=== PATIENT | male | born 1965 | race Caucasian/White ===

== ENCOUNTER → 2024-03-09 08:07 | Outpatient (REF) | payer BC, SELFPAY | LOC: DHCBC/DCA 08:07 | PROVIDERS: ATTENDING PHYSICIAN Internal Medicine Cardiovascular Disease; FAMILY PHYSICIAN Internal Medicine | DX: R07.9 Chest pain, unspecified (principal) | CPT/HCPCS: 78452; 93017; A9500 ==

== ENCOUNTER → 2024-03-23 10:04 | Outpatient (REF) | payer BC, SELFPAY | LOC: RCS 10:04 | PROVIDERS: ATTENDING PHYSICIAN Internal Medicine Cardiovascular Disease; FAMILY PHYSICIAN Internal Medicine | DX: R07.9 Chest pain, unspecified (principal) | CPT/HCPCS: 93306 ==

== ENCOUNTER 2024-06-10 02:14 | Inpatient (IN) | payer BC, SELFPAY ==
[2024-06-09 22:23] VITALS: BP 139/94
--- NOTE | 2024-06-09 23:45 | ED.GENMED ---
History of Present Illness
General
Chief Complaint: Abdominal Pain
Source: patient and spouse
Exam Limitations: none
Time Seen by Provider: 06/09/24 23:27
Nursing documentation reviewed up to this point in time: agreed with
History of Present Illness
History of Present Illness:
58-year-old male with past medical history of hyperlipidemia who presents to the emergency department for evaluation of abdominal pain. Patient reports symptoms started early in the afternoon around 1:30 PM and have been constant and significant
since then. He says that he lifted a heavy motorcycle engine prior to onset but does not recall any injury. He describes diffuse abdominal pain somewhat worse on the left side. No clear triggering or relieving factors noted. Associated with
nausea and vomiting today. Denies any diarrhea or constipation�had 2 bowel movements today. He denies any dysuria, hematuria, change in urinary frequency. Denies any fevers or chills. Denies any other complaints. Chart reviewed indicates prior
history of alcohol use�patient denies to me.
Past History
Past History
ED Past Medical History: Other (theochromocytosis)
ED Past Surgical History: None
Social History
Personal:
Living: with family
Employment: Employed
Review of Systems
Review of Systems
All Other Systems: ROS reviewed and negative except as documented in HPI and ROS
Constitutional: Denies fever or chills
Respiratory: Denies trouble breathing
Cardiac: Denies chest pain
ABD/GI: Reports abdominal pain, nausea and vomiting; Denies diarrhea or constipated
: Denies dysuria, frequency or flank pain
Musculoskeletal: Denies neck pain or back pain
Neurological: Denies dizzy or headache
Phy Exam
Physical Exam
Physical Exam:
General: Awake, alert, oriented x3; appears uncomfortable
Head: Normocephalic, atraumatic
Eyes: Conjunctiva normal, sclera anicteric
Throat: Airway intact, handling secretions
Neck: Trachea midline, supple without meningismus
Lungs: Clear to auscultation bilaterally, no wheezing, rales, rhonchi
Heart: Regular rate and rhythm, no murmurs, gallops, or rubs
Abd: Soft, non distended, diffusely tender to palpation, no palpable hernias or masses
Neuro: No gross deficits
Skin: no rash
Extremities: Warm and well-perfused
Scores
Heart Failure Risk
Heart Failure Risk Score: Not Applicable
Heart Score for Chest Pain Patients
STEMI patient?: Not applicable
Withdrawal Assessment of Alcohol
Withdrawal Assessment Completed?: Not applicable
Course
Orders/Labs/Results
Orders:
Orders
06/09/24 23:45
Urinalysis Reflex To Culture Urgent
0.9% Sodium Chloride 1000 ml [Nss] 1,000 ml IV BOLUS
HYDROmorphone [Dilaudid] 0.5 mg IV NOW STA
06/09/24 23:54
Complete Blood Count/With Diff Urgent
Comprehensive Metabolic Panel Urgent
Lactate Level [Lactic Acid] Urgent
Lipase Urgent
06/10/24 00:01
CT Abd/pelvis W Iv Cont Urgent
Reason For Exam: left sided abd pain
06/10/24 00:40
NG Tube [GI tube insertion- Treatment] ONCE
06/10/24 00:45
0.9% Sodium Chloride 1000 ml [Nss] 1,000 ml IV 100 mls/hr
Abnormal Lab Results
06/09/24
23:54
WBC 12.7 H 10^3/uL
(4.8-10.8)
MCH 31.6 H pg
(27.0-31.0)
Abs Immat Gran (auto) 0.1 H 10^3/uL
(0-0.05)
Absolute Neuts (auto) 10.4 H 10^3/uL
(1.4-6.5)
Absolute Monos (auto) 0.7 H 10^3/uL
(0.1-0.6)
Immature Gran % 0.6 H %
(0-0.5)
Neutrophils % 81.8 H %
(42.2-75.2)
Lymphocytes % 11.0 L %
(20.5-51.1)
Carbon Dioxide 31 H mmol/L
(22-30)
BUN 23 H mg/dl
(9-20)
Glucose 137 H mg/dl
(70-99)
06/09/24 23:54
06/09/24 23:54
Vital Signs
Initial and Last Documented VS:
Initial Vital Signs
Temp Pulse Resp BP Pulse Ox
36.4 C 79 18 139/94 100
06/09/24 22:23 06/09/24 22:23 06/09/24 22:23 06/09/24 22:23 06/09/24 22:23
Last Documented Vital Signs
Temp Pulse Resp BP Pulse Ox
36.4 C 87 16 136/80 97
06/09/24 22:23 06/10/24 00:30 06/10/24 00:30 06/10/24 00:30 06/10/24 00:30
MDM/Problems Addressed
Differential Diagnosis Includes:
Gastritis/PUD, pancreatitis, cholelithiasis, cholecystitis, nephrolithiasis, incarcerated hernia, diverticulitis, SBO
MDM/Problems Addressed:
58-year-old male presents for evaluation of abdominal pain started rather suddenly this afternoon and has been constant and worsening. Associated with nausea and vomiting. Vitals and exam as above. Will place an IV send labs including a CBC and a
CMP, urinalysis. Check lipase. Will check CT abdomen pelvis. Treat pain and provide fluids. Reassess after the above.
Labs reviewed: CBC shows leukocytosis, CMP no clinically significant abnormalities. Lipase normal. CT abdomen pelvis called back by [facility]: Positive for small bowel obstruction with transition point in the right abdomen. His pain is
well-controlled after 1 dose of pain medication. Lactate normal. Will plan to place nasogastric tube for decompression. Will admit for continued management. Fluids in progress. Case discussed with hospitalist.
*Radiology
Radiology exam reviewed: radiology read reviewed
*Pulse Oximetry
Patient hypoxic: no
*Critical Care Note
Total Time (30-74mins, 75-104mins- exclusive of procedures): Not Applicable
Patient Management
Discussion with other providers: Hospitalist (Discussed with hospitalist)
Escalation/DeEscalation of care consider admission/obs:
Admission indicate
ED Attending Note
-
Portions of this chart may have been created with voice recognition software.� Occasional wrong word or��sound alike� substitutions may have occurred due to the inherent limitations of voice recognition software.
Discharge Plan
Departure
Patient Disposition: Admit
Date of Disposition: 06/10/24
Time of Disposition: 00:46
Admit to doctor: Darrin
Presentation/result/management discussed w/ accepting MD/DO: Hospitalist
Discharge Problem:
SBO (small bowel obstruction)
Prescriptions:
No Action
No Current Medications
0
Referrals:
Best Mazariegos I., DO [Family Provider] -
Interventions
Interventions:
*Risk Screen - Suicide Last Done: 06/09/24 22:23
*General Assessment Last Done: 06/09/24 22:23
*Neglect/Abuse Screening Last Done: 06/09/24 22:23
RP-Bmcvmi-[id number] Assessment Last Done: 06/09/24 22:42
Discharge Date and Time
Print Language: BURKINAN
[2024-06-09] MEDS: DILAUDID 0.5 MG IV (23:50)
[2024-06-09] MEDS: NSS 1000 IV (23:50)
[2024-06-10 00:02] LABS: % Basophils 0.4 % (0-2); % Eosinophils 0.6 % (0-6); % Immature Granulocytes 0.6 % (0-0.5); % Monocytes 5.6 % (1.7-9.3); % Neutrophils 81.8 % (42.2-75.2); Absolute Basophils 0.1 10^3/uL (0-0.2); Absolute Eosinophils 0.1 10^3/uL (0-0.7); Absolute Immature Granulocytes 0.1 10^3/uL (0-0.05); Absolute Lymphocytes 1.4 10^3/uL (1.2-3.4); Absolute Monocytes 0.7 10^3/uL (0.1-0.6); Absolute Neutrophils 10.4 10^3/uL (1.4-6.5); Hematocrit 50.1 % (39.0-52.0); Hemoglobin 17.7 g/dL (13.0-18.0); Mean Corp Hgb Conc. 35.3 g/dL (33.0-37.0); Mean Corpuscular Hgb 31.6 pg (27.0-31.0); Mean Corpuscular Volume 89.3 fL (80.0-94.0); Mean Platelet Volume 10.1 fL (7.4-10.4); Nucleated Red Blood Cells % 0 % (-); Platelet Count 248 10^3/uL (130-400); Red Blood Cell Count 5.61 10^6/uL (4.70-6.10); Red Cell Dist. Width 12.8 % (11.5-14.5); White Blood Cell Count 12.7 10^3/uL (4.8-10.8)
[2024-06-10 00:15] LABS: ALT (SGPT) 43 U/L (0-50); AST (SGOT) 29 U/L (17-59); Albumin 4.5 g/dl (3.5-5.0); Alkaline Phosphatase 103 U/L (38-126); Blood Urea Nitrogen 23 mg/dl (9-20); Calcium 10.2 mg/dl (8.4-10.2); Carbon Dioxide 31 mmol/L (22-30); Chloride 99 mmol/L (98-107); Estimated Creatinine Clearance 113 ml/min; Glucose 137 mg/dl (70-99); Lactic Acid 0.9 mmol/L (0.7-2.0); Lipase 61 U/L (23-300); Potassium 4.1 mmol/L (3.5-5.1); Sodium 137 mmol/L (135-145); Total Protein 7.3 g/dl (6.3-8.2); eGFR > 60.00
[2024-06-10 00:30] VITALS: BP 136/80
--- NOTE | 2024-06-10 01:58 | HPS.HSE ---
Family Physician
-
Family Physician: Best Mazariegos
Chief Complaint
-
Abd Pain, N/V
History of Present Illness
Patient is a 58y M with no significant PMH who presents to ED complaining of abdominal pain and N/V. Patient states that he was feeling well earlier today. Around noon he lifted a motorcycle engine by himself. Around 1 PM he developed severe,
diffuse abdominal pain. His symptoms lasted for several hours. He attempted to move his bowels unsuccessfully. No flatus since pain started. He induced vomiting at home with no significant improvement in his symptoms and ultimately he presented
to the ED for further evaluation.
Patient has never had any prior intra-abdominal surgeries. No prior h/o similar symptoms.
He had a normal BM this AM prior to onset of his current symptoms.
In the ED, NG was placed for > 2 liters of bilious drainage. Patient continues to complain of significant abdominal pain.
Medical History
Past Medical History
Past Medical History: Reports None
Past Surgical History: Reports None
Social History
Tobacco: Smoker (Prior cigarette smoker. Current daily vape use.)
Alcohol: Occasional
Personal:
Living: With Family
Family History
Family History: Not pertinent
Allergies / Home Medications
Allergies reflects when Allergies were last updated in [email or web address].
Home Medications with original date entered in [email or web address]
Allergy/Medication List:
Allergies
Allergy/AdvReac Type Severity Reaction Status Date / Time
No Known Allergies Allergy Verified 08/17/14 08:13
Home Medications
No Meds [No Current Medications] 08/07/14
Review of Systems
-
History Source: Patient
A 12 point ROS was completed and negative except as noted: Yes
Constitutional: Denies Fever or Chills
Respiratory: Denies Cough or Trouble Breathing
Cardiac: Denies Chest Pain or Palpitations
Abdomen/GI: Reports Abdominal Pain, Nausea and Vomiting; Denies Diarrhea
: Denies Dysuria or Frequency
Musculoskeletal: Denies Joint Pain or Edema
Neurological: Denies Dizzy or Headache
Physical Exam
Vital Signs
Vital Signs
Temp Pulse Resp BP Pulse Ox
97.6 F 87 16 136/80 97
06/09/24 22:23 06/10/24 00:30 06/10/24 00:30 06/10/24 00:30 06/10/24 00:30
Physical Exam
General: Other (58y M in moderate distress due to pain.)
HEENT: Other (Dry MM. Neck supple. NG in place at present.)
Respiratory: Clear; No Wheezes, Rales or Rhonchi
Cardiac: S1/S2 and Regular Rhythm; No Murmur
GI: Other (Abdomen is distended and firm. Pos diffuse tenderness. Bowel sounds are diminished.)
Musculoskeletal: No Clubbing, No Cyanosis and No Edema
Laboratory Results
-
06/09/24 23:54
06/09/24 23:54
Laboratory Results
Lactic Acid 0.9 mmol/L (0.7-2.0) 06/09/24 23:54
Total Bilirubin 1.0 mg/dl (0.2-1.3) 06/09/24 23:54
AST 29 U/L (17-59) 06/09/24 23:54
ALT 43 U/L (0-50) 06/09/24 23:54
Alkaline Phosphatase 103 U/L (38-126) 06/09/24 23:54
Lipase 61 U/L (23-300) 06/09/24 23:54
Impression/Plan
-
A/P: Patient is a 58y M with no significant PMH who presents to ED complaining of abdominal pain since this afternoon.
SBO
- Admit for further evaluation and treatment.
- Patient with acute SBO in [place] abdomen. Symptom onset shortly after very heavy lifting raises concern for internal hernia.
- Mild mesenteric stranding on CT, but lactate level normal.
- NG decompression. NPO, IVFs. Continue efforts at pain control.
- Follow for clinical improvement.
- Surgery evaluation for additional recommendations +/- OR intervention.
DVT Prophylaxis: SCDs
Code Status: Full
[2024-06-10] MEDS: NSS 1000 IV ×4 (02:09→18:28)
[2024-06-10] MEDS: DILAUDID 1 MG IV (02:09)
[2024-06-10 03:49] VITALS: BP 135/105; BMI 29.7
[2024-06-10] MEDS: DILAUDID 0.5 MG IV ×2 (04:06→22:06)
[2024-06-10 04:42] LABS: Urine Albumin 1+ (Neg - Trace); Urine Bilirubin Negative (Negative); Urine Character Clear (Clear); Urine Color Yellow; Urine Glucose Negative (Negative); Urine Ketone 3+ (Negative); Urine Leukocyte 1+ (Negative); Urine Nitrite Negative (Negative); Urine Occult Blood 2+ (Negative); Urine Urobilinogen Negative (Neg - 1+)
[2024-06-10 04:54] LABS: Urine Bacteria Few (Negative); Urine Granular Cast 0-2 /LPF (0); Urine Red Blood Cell 0-2 /HPF (0-2); Urine Squamous Cell 0-2 /LPF (Few)
[2024-06-10 06:46] LABS: Hematocrit 51.8 % (39.0-52.0); Hemoglobin 18.1 g/dL (13.0-18.0); Mean Corp Hgb Conc. 34.9 g/dL (33.0-37.0); Mean Corpuscular Hgb 31.7 pg (27.0-31.0); Mean Corpuscular Volume 90.7 fL (80.0-94.0); Mean Platelet Volume 9.6 fL (7.4-10.4); Platelet Count 266 10^3/uL (130-400); Red Blood Cell Count 5.71 10^6/uL (4.70-6.10); White Blood Cell Count 15.2 10^3/uL (4.8-10.8)
[2024-06-10 07:06] LABS: Blood Urea Nitrogen 27 mg/dl (9-20); Calcium 10.3 mg/dl (8.4-10.2); Carbon Dioxide 27 mmol/L (22-30); Chloride 103 mmol/L (98-107); Estimated Creatinine Clearance 101 ml/min; Glucose 143 mg/dl (70-99); Potassium 4.3 mmol/L (3.5-5.1); Sodium 140 mmol/L (135-145); eGFR > 60.00
[2024-06-10] MEDS: TORADOL 15 MG IV (07:35)
[2024-06-10 07:45] VITALS: BP 118/78
[2024-06-10] MEDS: PROTONIX IV 40 MG IV (08:49)
[2024-06-10] MEDS: NSS (PRESERVATIVE FREE) 10 ML IV (08:49)
--- NOTE | 2024-06-10 09:09 | CON.GS ---
Medical History
-
Chief Complaint: Abdominal pain, distention and vomiting
History of Present Illness:
Patient is a 58-year-old male who was in his usual baseline state of health until yesterday afternoon when he began developing the acute onset of abdominal discomfort and distention.
States the only preceding change compared to his typical diet and routine is that he had 2 cups of blackberries. Notices symptoms shortly after moving motorcycle engine but they were not abrupt in onset during this activity. Abdominal bloating and
distention slowly progressed throughout the day. He went out to dinner with family/friends and ate very little because of anorexia and discomfort. His pain continued to progress into the evening prompting emergency department evaluation. He
induced vomiting to alleviate the pressure but stated that he did not have nausea. No sick contacts that he is aware of.
Patient reports symptoms started similar to what he experienced after trialing omeprazole/PPI in March for GERD.
This a.m. notes improving distention and discomfort. Pain essentially completely relieved with pain medication. He has had 4 loose bowel movements as well overnight since admission. No localizing abdominal pain.
Past Medical History
Past Medical History: None (Patient denies any significant active or past medical history.) and GERD
Past Surgical History: None (Denies any past abdominal surgical history)
Social History
Alcohol: Occasional
Personal:
Living: With Family
Employment: Employed
Family History
Family History: Reviewed & Not Pertinent
Allergies / Home Medications
Allergy/AdvReac Type Severity Reaction Status Date / Time
No Known Allergies Allergy Verified 08/17/14 08:13
�Medication �Instructions �Recorded �Confirmed �Type
No Meds [No Current Medications] 08/07/14 06/10/24 History
Review of Systems
-
A 10 point review of systems was completed, and was negative except as per HPI.
Physical Exam
Vital Signs
Temp Pulse Resp BP Pulse Ox
97.9 F 103 16 118/78 94
06/10/24 07:45 06/10/24 07:45 06/10/24 07:45 06/10/24 07:45 06/10/24 07:45
06/09/24 06/10/24 06/11/24
06:59 06:59 07:59
Actual Weight 91.285 kg
Body Mass Index (BMI) 29.7
Lab Results
06/10/24 06:25
06/10/24 06:25
WBC 15.2 10^3/uL (4.8-10.8) H 06/10/24 06:25
Hgb 18.1 g/dL (13.0-18.0) H 06/10/24 06:25
Hct 51.8 % (39.0-52.0) 06/10/24 06:25
Plt Count 266 10^3/uL (130-400) 06/10/24 06:25
Abs Immat Gran (auto) 0.1 10^3/uL (0-0.05) H 06/09/24 23:54
Neutrophils % 81.8 % (42.2-75.2) H 06/09/24 23:54
Physical Exam
General: Well Developed, Well Nourished, No Apparent Distress, Comfortable (Patient resting comfortably in hospital bed.) and Other ( at bedside. )
HEENT: Normocephalic, Anicteric and Other (NG tube in place and secured. 55 cm bryanna)
Cardiac: Regular Rhythm
GI: Soft, Tender (Slight tenderness on palpation central and right side. No rebound, no rigidity, no guarding. No percussion tenderness.) and Distended (Mildly distended but not tense.)
Skin: Warm
Neuro: AO x 3
Psych: Calm
Data Reviewed
-
CT Scan: Image Personally Visualized and interpreted, Report Reviewed by me, Discussed with Physician, Discussed with Patient and Discussed with Family
Labs: Labs Reviewed by me, Discussed with Physician, Discussed with Patient and Discussed with Family
Assessment / Plan
-
Assessment: 58-year-old male admitted with possible SBO; uncertain etiology -possible dietary indiscretion with resultant passage of food bolus? No radiographic evidence of mass or adenopathy.
Differential diagnosis also includes viral enteritis
Personally reviewed CT imaging as well as radiologist report. Significant distention of the stomach and proximal small bowel. Small bowel feces sign proximal to the transition point which is a rather smooth and straight aligned taper rather than
twist or turn. Slight mesenteric edema, no significant bowel wall thickening. No free fluid or ascites. No radiographic evidence strongly suggestive of internal hernia or closed-loop obstruction. There is still liquid contents within the
relative decompressed distal ileum which is not completely collapsed all the way up to the terminal ileum.
Discussed with patient and his impressions as outlined above. We reviewed treatment options which would include continued bowel rest, NG tube decompression and close observation/supportive care versus more urgent surgical intervention with
diagnostic laparoscopy. Given clinical improvement with initial hydration and NG tube decompression, lack of peritoneal signs, radiographic imaging without clear signs of bowel threat or compromise advised that I would lean towards medical
management which patient is in agreement with.
Plan: NG tube decompression
Increase IV fluid rate for ongoing resuscitation
Repeat labs tomorrow a.m.
Follow abdominal examinations
--- NOTE | 2024-06-10 13:37 | CM ---
Initial assessment was completed with pt at bedside.
Pt is a 58yr old male admitted with SBO.
At baseline, pt lives with his in a multi level home with 2 steps to enter.
Pt is indep at baseline and drives.
Pt has no current/hx of equip/SNF/VN
PCP; Best Mazariegos
Pharm; [facility]
PLAN; Return to home with no needs.
--- NOTE | 2024-06-10 13:59 | W.PN.HOSP.TC ---
Today's Communication/Plan
-
continue NG decompression
recheck CBC
continue IVF
Assessment / Plan
Assessment / Plan
A/P: Patient is a 58y M with no significant PMH who presents to ED complaining of abdominal pain since the afternoon of admission.
WBC 12.7-->15.2
SBO
- Admit for further evaluation and treatment.
- Patient with acute SBO in [place] abdomen. Symptom onset shortly after very heavy lifting raises concern for internal hernia.
- Mild mesenteric stranding on CT, but lactate level normal: There is moderate distention of the stomach in the uterus loops of small bowel with transition point in the lower midline abdomen consistent with small bowel obstruction. There is
associated mesenteric edema which can be seen with high-grade obstruction.
- NG decompression. NPO, IVFs. Continue efforts at pain control.
- Follow for clinical improvement.
- Surgery evaluation for additional recommendations +/- OR intervention.
Discussed with Dr. Khan, does not believe pt would benefit from abx
will recheck CBC now and in AM
DVT Prophylaxis: SCDs
Code Status: Full
Anticipated Discharge: > 48 hours
Subjective/Interval History
-
Date of Service: June 10, 2024
Still with abdominal distention, he is asking if NG tube could come out
Objective Data
-
Labs:
Laboratory Results
06/10/24 06/10/24
06:25 13:56
WBC 15.2 H Pending
Hgb 18.1 H Pending
Hct 51.8 Pending
Plt Count 266 Pending
Sodium 140
Potassium 4.3
Chloride 103
Carbon Dioxide 27
BUN 27 H
Creatinine 0.8
Glucose 143 H
Calcium 10.3 H
Vital Signs:
Vital Signs
Temp Pulse Resp BP Pulse Ox
97.9 F 103 16 118/78 94
06/10/24 07:45 06/10/24 07:45 06/10/24 07:45 06/10/24 07:45 06/10/24 07:45
I&O
06/09/24 06/10/24 06/11/24
06:59 06:59 07:59
Intake Total
Output Total 2400 / 240
Balance -2370 / -2370
Review of Systems
-
History Source: Patient and Family (, RN, at bedside)
Constitutional: Denies Fever
EENT: Reports No Symptoms Reported
Respiratory: Reports No Symptoms
Cardiac: Reports No Symptoms
Abdomen/GI: Reports Abdominal Pain (better) and Bloated
Genitourinary: Reports No Symptoms
Musculoskeletal: Reports No Symptoms
Physical Exam
-
General: Well Developed, Well Nourished and No Apparent Distress
HEENT: Atraumatic and Moist Mucous Membranes
Respiratory: Clear to Auscultation; Negative Wheezes, Rales or Rhonchi
Cardiac: Regular Rhythm and S1/S2
GI: Distended; Negative Normal Bowel Sounds
Musculoskeletal: No Clubbing, No Cyanosis and No Edema
Skin: Warm and Dry
Neuro: Alert and Oriented
[2024-06-10 14:24] LABS: % Basophils 0.3 % (0-2); % Eosinophils 1.8 % (0-6); % Immature Granulocytes 0.4 % (0-0.5); % Lymphocytes 15.3 % (20.5-51.1); % Monocytes 8.6 % (1.7-9.3); % Neutrophils 73.6 % (42.2-75.2); Absolute Eosinophils 0.2 10^3/uL (0-0.7); Absolute Lymphocytes 1.6 10^3/uL (1.2-3.4); Absolute Monocytes 0.9 10^3/uL (0.1-0.6); Absolute Neutrophils 7.7 10^3/uL (1.4-6.5); Hematocrit 43.7 % (39.0-52.0); Hemoglobin 15.1 g/dL (13.0-18.0); Mean Corp Hgb Conc. 34.6 g/dL (33.0-37.0); Mean Corpuscular Hgb 31.6 pg (27.0-31.0); Mean Corpuscular Volume 91.4 fL (80.0-94.0); Mean Platelet Volume 9.4 fL (7.4-10.4); Nucleated Red Blood Cells % 0 % (-); Platelet Count 216 10^3/uL (130-400); Red Blood Cell Count 4.78 10^6/uL (4.70-6.10); Red Cell Dist. Width 13.1 % (11.5-14.5); White Blood Cell Count 10.4 10^3/uL (4.8-10.8)
[2024-06-10 15:15] VITALS: BP 138/82
[2024-06-10] MEDS: CHLORASEPTIC/SORE THROAT SPRAY 1 SPRAY PO ×2 (16:35→18:35)
[2024-06-10 23:12] VITALS: BP 143/89
[2024-06-11] MEDS: NSS 1000 IV ×2 (01:07→08:03)
[2024-06-11 05:57] LABS: % Basophils 0.5 % (0-2); % Eosinophils 2.6 % (0-6); % Immature Granulocytes 0.4 % (0-0.5); % Lymphocytes 22.9 % (20.5-51.1); % Monocytes 9.9 % (1.7-9.3); % Neutrophils 63.7 % (42.2-75.2); Absolute Eosinophils 0.2 10^3/uL (0-0.7); Absolute Lymphocytes 1.7 10^3/uL (1.2-3.4); Absolute Monocytes 0.8 10^3/uL (0.1-0.6); Absolute Neutrophils 4.9 10^3/uL (1.4-6.5); Hematocrit 44.4 % (39.0-52.0); Mean Corp Hgb Conc. 33.8 g/dL (33.0-37.0); Mean Corpuscular Hgb 31.7 pg (27.0-31.0); Mean Corpuscular Volume 93.9 fL (80.0-94.0); Mean Platelet Volume 10.2 fL (7.4-10.4); Nucleated Red Blood Cells % 0 % (-); Platelet Count 203 10^3/uL (130-400); Red Blood Cell Count 4.73 10^6/uL (4.70-6.10); Red Cell Dist. Width 13.1 % (11.5-14.5); White Blood Cell Count 7.6 10^3/uL (4.8-10.8)
[2024-06-11 06:29] LABS: Blood Urea Nitrogen 18 mg/dl (9-20); Calcium 8.3 mg/dl (8.4-10.2); Carbon Dioxide 25 mmol/L (22-30); Chloride 108 mmol/L (98-107); Estimated Creatinine Clearance 101 ml/min; Glucose 87 mg/dl (70-99); Potassium 3.9 mmol/L (3.5-5.1); Sodium 139 mmol/L (135-145); eGFR > 60.00
[2024-06-11 07:59] VITALS: BP 140/100
[2024-06-11] MEDS: PROTONIX IV 40 MG IV (08:04)
[2024-06-11] MEDS: NSS (PRESERVATIVE FREE) 10 ML IV (08:04)
--- NOTE | 2024-06-11 10:36 | W.PN.GS2 ---
Addendum entered and electronically signed by Joel Khan MD 06/11/24 10:52:
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
Clinically improving. Appetite returning. No abdominal pain. Passing flatus. Occasional bowel movements but less often after initial loose stools following admission.
No significant abdominal pain
AFVSS
NAD AAOx3
ABD: Soft, nondistended, no tenderness on palpation
NG tube in place with scant gastric contents -nonbilious
Abdominal x-ray images personally reviewed. No significant gastric distention. Minimal small bowel distention. Air throughout the colon. Significant improvement in comparison to CT imaging.
Assessment/plan: 58-year-old male admitted initially with pSBO -uncertain etiology; clinically and radiographically improving/resolving
NG tube removed
Clear liquid diet and advance as tolerated to low fiber
Okay for discharge if tolerates p.o. challenge; if does not tolerate p.o. challenge then would reimage with contrast imaging study
Original Note:
Today's Communication / Plan
-
Advance diet as tolerated
Assessment / Plan
-
58 yo male admitted with possible SBO; uncertain etiology -possible dietary indiscretion with resultant passage of food bolus? No radiographic evidence of mass or adenopathy.
Differential diagnosis also includes viral enteritis.
Improvement with bowel rest and NGT decompression. XR this am with improvement
Mild intermittent tachycardia, elevated BP
Passing stool/flatus without n/v. Abdominal exam benign
--NGT removed at bedside
--Trial of clears
--D/C IVF
--Ok to advance diet as tolerated to LRD this afternoon if tolerating clears. Ok from surgical standpoint to discharge to home once tolerating LRD
Subjective Data
-
Date of Service: June 11, 2024
Patient seen and examined at bedside with Dr. Khan. Denies n/v. Passing flatus stools. No furhter abdominal pain today.
Objective Data
-
Intake and Output
06/10/24 06/11/24 06/12/24
05:59 06:59 06:59
Intake Total
Output Total 500 / 500
Balance -500 / -500
Intake:
Amount instilled into GI Tube (
Total)
[place] S[place]
Output:
Gastrointestinal tube output (
Total)
[place] S[place]
Urine, Voided 500 / 500
Vital Signs
Temp Pulse Resp BP Pulse Ox
98.0 F 94 16 140/100 96
06/11/24 07:59 06/11/24 07:59 06/11/24 07:59 06/11/24 07:59 06/11/24 07:59
Lab Results
06/11/24 04:46
06/11/24 04:46
Calcium 8.3 mg/dl (8.4-10.2) L D 06/11/24 04:46
Total Bilirubin 1.0 mg/dl (0.2-1.3) 06/09/24 23:54
AST 29 U/L (17-59) 06/09/24 23:54
ALT 43 U/L (0-50) 06/09/24 23:54
Alkaline Phosphatase 103 U/L (38-126) 06/09/24 23:54
Total Protein 7.3 g/dl (6.3-8.2) 06/09/24 23:54
Albumin 4.5 g/dl (3.5-5.0) 06/09/24 23:54
Physical Exam
-
NAD
ABD soft, nt, nd
NGT with low output gastric drainage
--- NOTE | 2024-06-11 12:56 | W.PN.HOSP.TC ---
Today's Communication/Plan
-
cautiously advance diet
Assessment / Plan
Assessment / Plan
A/P: Patient is a 58y M with no significant PMH who presents to ED complaining of abdominal pain since the afternoon of admission.
WBC 12.7-->15.2-->10.4-->7.6
SBO
- Admit for further evaluation and treatment.
- Patient with acute SBO in [place] abdomen. Symptom onset shortly after very heavy lifting raises concern for internal hernia.
-06/10 Mild mesenteric stranding on CT, but lactate level normal: There is moderate distention of the stomach in the uterus loops of small bowel with transition point in the lower midline abdomen consistent with small bowel obstruction. There is
associated mesenteric edema which can be seen with high-grade obstruction.
- NG tube removed now on clear liquids
- Surgery evaluation appreciated
Discussed with Dr. Khan, does not believe pt would benefit from abx
06/11 Abd X-Ray: There is a focally prominent loop of small bowel projecting of the left lower quadrant suspicious for ongoing small bowel obstruction.
The nasoenteric tube tip projects over the stomach with the side-port projecting over the region of the GE junction. Slight advancement may be considered.
(by my read, also significant amount of residual stool in rectosigmoid area)
diet to be advanced. Timing of dc will be as per clinical resolution.
DVT Prophylaxis: SCDs
Code Status: Full
Anticipated Discharge: 24 - 48 hours
Subjective/Interval History
-
Date of Service: June 11, 2024
NG tube removed, tolerating clear liquids. States passing flatus
Objective Data
-
Labs:
Laboratory Results
06/11/24
04:46
WBC 7.6
Hgb 15.0
Hct 44.4
Plt Count 203
Sodium 139
Potassium 3.9
Chloride 108 H
Carbon Dioxide 25
BUN 18
Creatinine 0.8
Glucose 87
Calcium 8.3 L D
Vital Signs:
Vital Signs
Temp Pulse Resp BP Pulse Ox
98.0 F 94 16 140/100 96
06/11/24 07:59 06/11/24 07:59 06/11/24 07:59 06/11/24 07:59 06/11/24 07:59
I&O
06/10/24 06/11/24 06/12/24
05:59 06:59 06:59
Intake Total
Output Total 500 / 500
Balance -500 / -500
Review of Systems
-
History Source: Patient and Family (, RN, at bedside)
Constitutional: Denies Fever
EENT: Reports No Symptoms Reported
Respiratory: Reports No Symptoms
Cardiac: Reports No Symptoms
Abdomen/GI: Reports Bloated; Denies Abdominal Pain (none currently)
Genitourinary: Reports No Symptoms
Musculoskeletal: Reports No Symptoms
Physical Exam
-
General: Well Developed, Well Nourished and No Apparent Distress
HEENT: Atraumatic and Moist Mucous Membranes
Respiratory: Clear to Auscultation; Negative Wheezes, Rales or Rhonchi
Cardiac: Regular Rhythm and S1/S2
GI: Nontender and Distended; Negative Normal Bowel Sounds (bowel sounds are more active, but reemain diminished in LLQ)
Musculoskeletal: No Clubbing, No Cyanosis and No Edema
Skin: Warm and Dry
Neuro: Awake, Alert, Oriented and AO x 3
[2024-06-11 15:45] VITALS: BP 140/93
[2024-06-11] MEDS: DULCOLAX 10 MG RECTAL (20:55)
--- NOTE | 2024-06-11 23:14 | W.PN.UPDATE ---
Update Note
Progress Note Update
insisting a covid test is checked. will order for am
[2024-06-11 23:16] VITALS: BP 137/90
--- NOTE | 2024-06-12 04:36 | PTCARENOTE ---
Pt aaox3 able to make his needs known. Pt was provided with Dulcolax suppository as per request. Pt had a large BM. Pt requested for a COVID test prior to leaving. 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
[2024-06-12 06:17] LABS: COVID-19 Antigen Negative (Negative)
[2024-06-12 06:33] LABS: % Basophils 0.6 % (0-2); % Eosinophils 2.7 % (0-6); % Immature Granulocytes 0.5 % (0-0.5); % Lymphocytes 25.4 % (20.5-51.1); % Monocytes 9.3 % (1.7-9.3); % Neutrophils 61.5 % (42.2-75.2); Absolute Eosinophils 0.2 10^3/uL (0-0.7); Absolute Lymphocytes 1.7 10^3/uL (1.2-3.4); Absolute Monocytes 0.6 10^3/uL (0.1-0.6); Hematocrit 45.8 % (39.0-52.0); Hemoglobin 15.8 g/dL (13.0-18.0); Mean Corp Hgb Conc. 34.5 g/dL (33.0-37.0); Mean Corpuscular Hgb 31.7 pg (27.0-31.0); Mean Platelet Volume 10.1 fL (7.4-10.4); Nucleated Red Blood Cells % 0 % (-); Platelet Count 204 10^3/uL (130-400); Red Blood Cell Count 4.98 10^6/uL (4.70-6.10); Red Cell Dist. Width 12.8 % (11.5-14.5); White Blood Cell Count 6.6 10^3/uL (4.8-10.8)
[2024-06-12 07:02] LABS: Blood Urea Nitrogen 11 mg/dl (9-20); Calcium 9.1 mg/dl (8.4-10.2); Carbon Dioxide 23 mmol/L (22-30); Chloride 109 mmol/L (98-107); Estimated Creatinine Clearance 115 ml/min; Glucose 105 mg/dl (70-99); Potassium 4.1 mmol/L (3.5-5.1); Sodium 139 mmol/L (135-145); eGFR > 60.00
[2024-06-12] MEDS: PROTONIX IV 40 MG IV (07:27)
[2024-06-12] MEDS: NSS (PRESERVATIVE FREE) 10 ML IV (07:27)
[2024-06-12 07:55] VITALS: BP 138/92
--- NOTE | 2024-06-12 09:27 | W.PN.GS2 ---
Today's Communication / Plan
-
Dispo planning
Assessment / Plan
-
58 yo male admitted with possible SBO; uncertain etiology -possible dietary indiscretion with resultant passage of food bolus? No radiographic evidence of mass or adenopathy.
Differential diagnosis also includes viral enteritis.
AFVSS
Continues to improve
Passing stool/flatus without n/v. Abdominal exam benign
Tolerating dietary advancements
Plan:
--Start LRD
--Ok from surgical standpoint to discharge to home once tolerating diet
Subjective Data
-
Date of Service: June 12, 2024
Patient seen and examined at bedside. Had a BM last night after a suppository. Denies n/v/abdominal pain. Tolerating diet advancements.
Objective Data
-
Intake and Output
06/11/24 06/12/24 06/13/24
06:59 06:59 06:59
Intake Total 240 / 240
Output Total 500 / 500
Balance -260 / -260
Intake:
Oral fluids 240 / 240
Amount instilled into GI Tube (
Total)
[place]
Output:
Gastrointestinal tube output (
Total)
[place]
Urine, Voided 500 / 500
Other:
Number of approximated MODERATE 2
amounts of urine
Vital Signs
Temp Pulse Resp BP Pulse Ox
98.5 F 95 16 138/92 96
06/12/24 07:55 06/12/24 07:55 06/12/24 07:55 06/12/24 07:55 06/12/24 07:55
Lab Results
06/12/24 05:59
06/12/24 05:59
Calcium 9.1 mg/dl (8.4-10.2) 06/12/24 05:59
Total Bilirubin 1.0 mg/dl (0.2-1.3) 06/09/24 23:54
AST 29 U/L (17-59) 06/09/24 23:54
ALT 43 U/L (0-50) 06/09/24 23:54
Alkaline Phosphatase 103 U/L (38-126) 06/09/24 23:54
Total Protein 7.3 g/dl (6.3-8.2) 06/09/24 23:54
Albumin 4.5 g/dl (3.5-5.0) 06/09/24 23:54
Physical Exam
-
NAD
ABD soft, nt, nd
--- NOTE | 2024-06-12 12:06 | W.PN.HOSP.TC ---
Addendum entered and electronically signed by Enrico Hays MD 06/12/24 17:23:
[id number]
Original Note:
Today's Communication/Plan
-
Low residue diet
Follow-up PCP, surgery, gastroenterology outpatient
Assessment / Plan
Assessment / Plan
A/P: Patient is a 58y M with no significant PMH who presents to ED complaining of abdominal pain since the afternoon of admission.
SBO
- Improved with conservative management
-Likely secondary to viral enteritis, no evidence of mass or adenopathy on imaging
� Tolerated low residue diet, continue
� Follow-up PCP, GI, surgery outpatient. Will benefit from possible colonoscopy outpatient
DVT Prophylaxis: SCDs
Code Status: Full
More than 30 minutes spent in discharge including
Final examination of the patient
Summarizing hospital stay
Instructions for continuing care to all relevant caregivers
Preparation of discharge records, prescriptions, and referral forms
Total time spent (37 in minutes):
Anticipated Discharge: Today
Subjective/Interval History
-
Date of Service: June 12, 2024
Tolerating low residue diet
Objective Data
-
Labs:
Laboratory Results
06/12/24
05:59
WBC 6.6
Hgb 15.8
Hct 45.8
Plt Count 204
Sodium 139
Potassium 4.1
Chloride 109 H
Carbon Dioxide 23
BUN 11
Creatinine 0.7
Glucose 105 H
Calcium 9.1
Vital Signs:
Vital Signs
Temp Pulse Resp BP Pulse Ox
98.5 F 95 16 138/92 96
06/12/24 07:55 06/12/24 07:55 06/12/24 07:55 06/12/24 07:55 06/12/24 07:55
I&O
06/11/24 06/12/24 06/13/24
06:59 06:59 06:59
Intake Total 240 / 240
Output Total 500 / 500
Balance -260 / -260
Review of Systems
-
History Source: Patient
All other systems: Not reviewed unless documented
Physical Exam
-
General: Well Developed, Well Nourished and No Apparent Distress
HEENT: Atraumatic and Moist Mucous Membranes
Respiratory: Clear to Auscultation; Negative Wheezes, Rales or Rhonchi
Cardiac: Regular Rhythm and S1/S2
GI: Nontender and Normal Bowel Sounds
Musculoskeletal: No Clubbing, No Cyanosis and No Edema
Skin: Warm and Dry
Neuro: Awake, Alert, Oriented and AO x 3
Data Reviewed
-
CT Scan: Image personally visualized and interpreted and Report Reviewed by me
Labs: Labs Reviewed by me
--- NOTE | 2024-06-12 12:12 | W.DS.TRANS ---
DC Summary - [employer]
-
Discharge Instructions:
Discharge Diagnosis/Procedures Small bowel Obstruction - likely 2/2 to viral
enteritis.
Diet Low Residue
Activity As tolerated
Blood Work cbc and bmp in 3-5 days with pcp
Instructions:
Stand-Alone Forms:
Changes to Home Medications: No
Discharge Medications:
DC Medications w/original date entered in [employer]
No Meds [No Current Medications] 08/07/14
Home Medication Changes
no
Pending Results: Yes
--- NOTE | 2024-06-12 12:13 | CM ---
MD entered order for discharge.
Spoke with pt he said he did not want VN .
His Paz will drive hi m home.
PLAN Home no needs
== END 2024-06-12 13:04 | disposition home or self-care (01) | DRG 390 ==
LOC: 4 EAST ACU 02:14
PROVIDERS: Internal Medicine; Nurse Practitioner Family; ADMITTING PHYSICIAN Hospitalist; ATTENDING PHYSICIAN Internal Medicine; CONSULT PHYSICIAN Surgery; EMERGENCY PHYSICIAN Emergency Medicine; FAMILY PHYSICIAN Internal Medicine
DX: K56.690 Other partial intestinal obstruction (principal); A08.4 Viral intestinal infection, unspecified; E78.5 Hyperlipidemia, unspecified; F17.290 Nicotine dependence, other tobacco product, uncomplicated; Z11.52 Encounter for screening for COVID-19
CPT/HCPCS: 43752; 74018; 74177; 80048; 80053; 81003; 81015; 83605; 83690; 85025; 85027; 87086; 87811; 96361; 96374; 99285; Q9967